=== PATIENT | female | born 1995 | race Caucasian/White ===

== ENCOUNTER → 2017-04-25 | Outpatient (CLI) | payer BC ==
[~2017-04-25] MED LIST: BCPILLS PO; DICL-201 PO; DOXY100C76 PO; SERT50TA PO
== END | disposition home or self-care (01) ==
LOC: C.PAPS 13:18
PROVIDERS: ATTEND Obstetrics & Gynecology
DX: Z01.419 Encounter for gynecological examination (general) (routine) without abnormal findings (principal)

== ENCOUNTER → 2018-01-13 | Outpatient (CLI) | payer OTHER | END | disposition home or self-care (01) | LOC: C.LAB 16:14 | PROVIDERS: ATTEND Psychiatry & Neurology Psychiatry | DX: E55.9 Vitamin D deficiency, unspecified (principal) ==